=== PATIENT | female | born 1980 | race Caucasian/White ===

== ENCOUNTER 2016-11-16 00:20 | Emergency (ER) ==
[2016-11-16] MEDS ORDERED: AFRIN NASAL SPRAY NAS ONE (00:39)
--- NOTE | 2016-11-16 00:46 | PROVIDER DOCUMENTATION ---
HPI-General Adult - General Chief Complaint: Nose Bleed Stated Complaint: NOSE BLEED Time Seen by Provider: 11/16/16 00:34 Source: patient Allergies/Adverse Reactions: Patient Allergies Allergy/AdvReac Type Severity Reaction Status Date / Time Penicillins Allergy Severe ANAPHYLAXIS Verified 11/16/16 00:40 erythromycin base Allergy Intermediate RASH Verified 11/16/16 00:40 moxifloxacin HCl * Allergy Intermediate RASH Verified 11/16/16 00:40 [From Avelox] Home Medications: Home Medication List Medication Instructions Recorded Confirmed Last Taken Type Sodium Chloride [Saline Nose Arg[place]] 1 spray NS BID 11/16/16 11/16/16 11/15/16 History - History of Present Illness -Gen Adult Nature of Presenting Problems: Pt. is 36yof that presents with c/o nose bleed that began around 2300 tonight. Pt. reports she had this problem before and states that she saw Dr. Whitfield and he cauterized her nasal passage and has been fine since. Pt. denies any other symptoms. Location of Pain/Injury: denies: head, face, mouth, neck, chest, upper extremity , hand(s), abdomen, back, pelvis, genitalia, lower extremity, feet, upper body, lower body, generalized Pain Radiation: reports: no radiation Quality of Pain: reports: none. denies: aching, burning, cramping, dull, fullness, indigestion, pressure, sharp, stabbing, tearing, throbbing, tightness Severity: denies: mild, moderate, severe Onset/Duration: reports: 1 hour ago Timing: reports: still present. denies: improving, gone now, resolved prior to arrival, intermittent, constant, changing over time, getting worse Context/Activities at Onset: reports: none. denies: recent emotional stress, recent physical stress, recent trauma history, possible bad food, cold exposure , out of country travel Modifying Factors: improves with: nothing Associated Symptoms: reports: EENT symptoms (Nose bleed). denies: anxiety, arm pain, back/neck pain, chest pain, constipation, cough, diaphoresis, diarrhea, dizziness, fatigue, fever/chills, genitourinary problems, headaches, heartburn, joint pain, loss of appetite, malaise, muscle aches, sinus congestion/drainage, nausea, rash, seizure, shortness of breath, sensory/motor loss, pain with inspiration, swelling/mass in abdomen, syncope, vomiting, weakness, trouble walking Similar Symptoms Previously?: Yes Recently seen or treated by another doctor?: Yes Review of Systems - Adult - REVIEW OF SYSTEMS - ADULT Constitutional: reports: see HPI. denies: chills, fever, fatique Eyes: reports: see HPI. denies: discharge, blurred vision, double vision, eye pain Ears, Nose, Mouth & Throat: reports: see HPI, epistaxis. denies: ear discharge , ear pain, hearing loss, sinus problem, nose pain, loose teeth, mouth/dental pain, throat pain, throat swelling Cardiovascular: reports: see HPI. denies: chest pain, edema, irregular heart rate, orthopnea, palpitations, syncope Respiratory: reports: see HPI. denies: cough, dyspnea on exertion, pleurisy, shortness of breath, wheezing Gastrointestinal: reports: see HPI. denies: abdominal pain, hematemesis, constipation, difficulty swallowing, nausea, vomiting Genitourinary: reports: see HPI. denies: dysuria, discharge, hematuria, hesitency, urgency Musculoskeletal: reports: see HPI. denies: bone pain, back pain, joint pain, muscle aches, neck pain Integumentary: reports: see HPI. denies: hives, hair loss, itching, rash, skin thickening Neurological: reports: see HPI. denies: ataxia, headache/migraines, numbness, seizure, tremors Psychiatric: reports: see HPI. denies: anxiety, depression, emotional problems , insomnia, panic attacks, suicidal thoughts Past History - Adult - PAST MEDICAL HISTORY-ADULT Review of Records: reports: Old Records Reviewed, Nursing Assessment Review, Medications Reviewed, Social history reviewed & non-contributory. - IMMUNIZATION STATUS Childhood Immunizations: See Nurse Assessment Flu Vaccine: See Nurse Assessment - FAMILY HISTORY Family History: reviewed, not pertinent - SOCIAL HISTORY Smoking: non-smoker Physical Exam-General - PHYSICAL EXAM-ADULT Initial Vital Signs Reviewed: Yes - CONSTITUTIONAL General Appearance: alert, mild distress, obese. negative: thin, anxious, lethargic, slow to respond, obtunded, combative - EYES Eyes: PERRL/EOMI, pink conjunctivae. negative: conjuctival exudate, scleral icterus, subconjunctival hemorrhage - HEAD, EARS, NOSE, MOUTH & THROAT HENMT: normocephalic/atraumatic, moist mucous membranes, other (Epistaxis from the right nare). negative: angioedema, frontal tenderness, maxillary tenderness - NECK Neck: non-tender, full range of motion, supple, normal inspection. negative: lymphadenopathy, trachial deviation, thyromegaly - RESPIRATORY Respiratory: lungs clear, normal breath sounds. negative: crackles, rales, rhonchi, stridor, wheezing - CARDIOVASCULAR Cardiovascular: normal peripheral pulses, regular rate, rhythm, no edema, no JVD , no murmur. negative: extra beats, friction rub, irregularly irregular - CHEST (BREASTS) Chest/Breast: deferred - GASTROINTESTINAL (ABDOMEN) Abdominal Exam: normal bowel sounds, non tender, soft. negative: distended, guarding, rigid, rebound, tenderness, hernia, mass - GENITOURINARY Female Genitalia/Pelvic Exam: deferred Rectal Exam: deferred Hemoccult Exam: deferred - LYMPHATIC Lymphatic: no adenopathy. negative: axilla node tender, cervical node tenderness - MUSCULOSKELETAL Back Exam: normal inspection, no CVA tenderness, no vertebral tenderness. negative: ecchymosis, swelling, vertebral tenderness Extremity: normal range of motion, non-tender, normal gait, normal inspection. negative: erythema, swelling, tenderness Peripheral Pulses: radial (R): 2+, radial (L): 2+ - SKIN Integumentary: normal color, normal turgor, warm/dry. negative: cyanosis, diaphoresis, ecchymosis, erythema, jaundice, mottled, pallor, petechiae, purpura , rash, swelling, tenderness - NEUROLOGIC Neurologic: grossly normal, no motor/sensory deficits. negative: aphasia, facial droop, focal weakness, motor weakness, sensory deficit - PSYCHIATRIC Psych/Mental Status: normal mood/affect, normal thought content, normal thought process, oriented x 3. negative: anxious, paranoid, tearful Progress - PLAN OF CARE/RESULTS Progress/Plan/Lab Results: Discussed results and plan of care with patient. Patient agrees with plan and verbalizes understanding. Vital Signs Pulse Resp BP Pulse Ox 11/16/16 00:23 80 18 143/99 100 Penicillins Allergy (Severe, Verified 11/16/16 00:40) ANAPHYLAXIS erythromycin base Allergy (Intermediate, Verified 11/16/16 00:40) RASH moxifloxacin HCl * [From Avelox] Allergy (Intermediate, Verified 11/16/16 00:40) RASH Sodium Chloride [Saline Nose [place]] 1 spray NS BID 11/16/16 Orders Category Date Time Status Misc. NRSG Communication Order DIRECTED Care 11/16/16 00:40 Active Ondansetron Odt [Zofran Odt] Med 11/16/16 01:06 Discontinued 4 mg PO NOW ONE Oxymetazoline Nasal Arg[place] [Afrin Nasal Arg[place]] Med 11/16/16 00:39 Discontinued 1 ml MAGDA NOW ONE Procedures - ENT PROCEDURES Epistaxis Management: Left Clots cleared from Nasal Passages:: By Patient Blowing Nose Nasal Drops Instilled: Afrin External Pressure for ___ Minutes.: 30 Nasal Rocket Insertion: Left, Anterior, Posterior Departure - Departure Time of Disposition Order: 01:11 DIAGNOSIS: Epistaxis Disposition: HOME 01 Certified Medical Emergency: Emergent Condition: Stable Additional Instructions: Follow up with primary care physician Follow up with your ENT physician Take pain medications previously prescribed Return to ED for any concerns or worsening of symptoms ED Follow Up Instructions: You have been treated by a care provider in the Emergency Department. These instructions are being provided to you so you can have an understanding of how to care for yourself upon discharge. Upon discharge from the Emergency Department, you are responsible for making arrangements for follow-up care by a physician of your choice. Take all prescribed medications as directed. Return to the Emergency Department immediately for any new or worsening symptoms. You may call the Physician Referral phone number at [phone] to obtain a list of Physicians who are taking new patients. Referrals: None,PCP [Primary Care Provider] - Attestation - Physician/ KATHERINE Attestation Patient care was provided by Advanced Practice Provider:: Yes Advanced Practice Provider:: Gerardo Saleem Advanced Practice Provider documentation review:: The Mid-level provider documentation, treatment plan and medical decision making was reviewed by the physician who agrees with all treatment and medical decision making by the MLP.
[2016-11-16] MEDS ORDERED: ZOFRAN ODT PO ONE (01:06)
[2016-11-16] MEDS ORDERED: NORCO-7.5 ONE (01:09)
[2016-11-16] MEDS ORDERED: NORCO-7.5 PO ONE (01:11)
[2016-11-16 01:31] VITALS: BP 154/90
== END 2016-11-16 01:30 | disposition home or self-care (01) ==
LOC: ED 00:20
DX: R04.0 Epistaxis (principal); E66.9 Obesity, unspecified